=== PATIENT | female | born 1960 | race African-American/Black ===

== ENCOUNTER → 2017-07-07 | Outpatient (CLI) | payer OTHER | END | disposition home or self-care (01) | LOC: NM 07:52 | PROVIDERS: ATTEND Internal Medicine Hematology & Oncology | DX: C50.411 Malignant neoplasm of upper-outer quadrant of right female breast (principal) | CPT/HCPCS: 78306; A9503 ==

== ENCOUNTER 2017-11-22 19:46 | Inpatient (IN) | payer OTHER ==
[~2017-11-22] VITALS: Ht 167.6 cm; Wt 102.1 kg
[~2017-11-22 19:46] MED LIST: ALBU90AE INH; BENZ100C86 PO; BUDE6HFA INH; DOCU250C19 PO; GLIM2TAB2 PO; LETR2.5T6 MT; ONDA4TAB50 PO; PALB125C PO
[2017-11-22] MEDS ORDERED: OXYCODONE HCL/ACETAMINOPHEN 5/325MG TABLET PO ONE (20:30)
[2017-11-22 22:20] LABS: BASOPHILS % 0.3 % (0.0-2.0); EOSINOPHILS % 0.2 % (0.0-5.0); HEMATOCRIT. 28.6 % (36.0-48.0); HEMOGLOBIN. 9.8 g/dL (12.0-16.0); LYMPHOCYTES % 7.1 % (20.0-50.0); MEAN CORPUSCULAR HEMOGLOBIN 31.7 pg (28.0-32.0); MEAN PLATELET VOLUME 7.6 fl (7.4-10.4); MONOCYTES % 11.1 % (2.0-8.0); NEUTROPHILS % 81.3 % (40.0-76.0); PLATELET 367 x1000/uL (130-400); RED BLOOD CELL COUNT 3.07 mill/uL (4.2-5.4); RED CELL DISTRIBUTION WIDTH 17.9 % (11.6-14.6)
[2017-11-22 22:22] LABS: INR 1.1; PROTHROMBIN TIME 11.2 sec (9.1-11.1)
[2017-11-22 22:26] LABS: CHLORIDE 101 mEq/L (98-107)
[2017-11-22] MEDS ORDERED: SODIUM CHLORIDE 0.9% 1,000 ML IV ONE (22:37)
[2017-11-22 23:07] LABS: BG BASE EXCESS 1.3 mmol/L (-2.0-2.0); BG CARBOXYHEMOGLOBIN 0.2 % (0.5-1.5); BG DEOXYHEMOGLOBIN 4.5 % (0.0-5.0); BG FRACTION INSPIRED OXYGEN 28; BG HCO3 ACT 25.6 mmol/L (22.0-26.0); BG METHEMOGLOBIN 0.3 % (0.0-1.5); BG OXYGEN SATURATION 95.5 % (92.0-98.5); BG PCO2 39.6 mmHg (35.0-45.0); BG PH 7.429 (7.350-7.450); BG PO2 79.1 mmHg (75.0-100.0); BG SAMPLE SITE RIGHT RADIAL; BG TOTAL HEMOGLOBIN 10.2 g/dL (12.0-18.0); BG VENT MODE NASAL CANNULA
[2017-11-23] MEDS ORDERED: OXYCODONE HCL/ACETAMINOPHEN 5/325MG TABLET PO ONE (00:45)
[2017-11-23] MEDS ORDERED: IOHEXOL-350 100 ML BOTTLE ONE (01:23)
[2017-11-23] MEDS ORDERED: LEVOFLOXACIN 750MG PREMIX 150 ML IV ONE (01:45)
[2017-11-23] MEDS: MORPHINE SULFATE 4 MG/ML CPJ (NOT FOR IM USE) IV PRN ×2 (03:34→09:37)
[2017-11-23 04:00] VITALS: BP 131/77
[2017-11-23] MEDS ORDERED: DEXTROSE 50% WATER 50ML SYRINGE IV PRN (06:00)
[2017-11-23] MEDS: BLOOD SUGAR DIAGNOSTIC STRIP TEST SCH ×4 (06:34→21:37)
[2017-11-23] MEDS: INSULIN LISPRO 100 UNITS/ML SUBCUT SCH ×4 (06:34→21:00)
[2017-11-23] MEDS: SODIUM CHLORIDE 0.45% 1,000 ML IV SCH ×2 (06:34→21:11)
[2017-11-23 08:05] VITALS: BP 131/82
[2017-11-23] MEDS: METHYLPREDNISOLONE SOD SUCC 40 MG/ML VIAL IV SCH ×2 (09:37→21:11)
[2017-11-23] MEDS: ENOXAPARIN 30MG/0.3ML SYR SUBCUT SCH ×2 (09:38→21:11)
[2017-11-23] MEDS: LEVOFLOXACIN 500MG TABLET PO SCH (11:23)
[2017-11-23 12:00] VITALS: BP 132/75
[2017-11-23] MEDS: IPRATROPIUM/ALBUTEROL 0.5-3(2.5)MG/3ML NEB HHN SCH ×3 (12:00→20:18)
[2017-11-23 16:00] VITALS: BP 138/80
[2017-11-23] MEDS ORDERED: ZOLPIDEM TARTRATE 5MG TABLET PO PRN (17:45)
[2017-11-23] MEDS: HYDROCODONE/ACETAMINOPHEN 5/325MG TABLET PO PRN (18:07)
[2017-11-23 20:00] VITALS: BP 137/84
[2017-11-23] MEDS: METOPROLOL TARTRATE 25MG TABLET PO SCH (21:11)
[2017-11-24] VITALS: BP 114/78
[2017-11-24 04:00] VITALS: BP 118/76
[2017-11-24] MEDS: IPRATROPIUM/ALBUTEROL 0.5-3(2.5)MG/3ML NEB HHN SCH ×6 (04:35→21:53)
[2017-11-24 06:43] LABS: HEMATOCRIT 31.3 % (36.0-48.0); HEMOGLOBIN 10.2 g/dL (12.0-16.0); MEAN CORPUSCULAR HEMOGLOBIN 30.5 pg (28.0-32.0); MEAN CORPUSCULAR VOLUME 92.9 fL (81.0-99.0); PLATELET 373 x1000/uL (130-400); RED BLOOD CELL COUNT 3.36 mill/uL (4.2-5.4); RED CELL DISTRIBUTION WIDTH 17.8 % (11.6-14.6)
[2017-11-24] MEDS: BLOOD SUGAR DIAGNOSTIC STRIP TEST SCH ×4 (07:08→21:36)
[2017-11-24 07:11] LABS: CHLORIDE 104 mEq/L (98-107)
[2017-11-24] MEDS: METOPROLOL TARTRATE 25MG TABLET PO SCH ×2 (09:21→21:29)
[2017-11-24] MEDS: METHYLPREDNISOLONE SOD SUCC 40 MG/ML VIAL IV SCH (09:22)
[2017-11-24] MEDS: ENOXAPARIN 30MG/0.3ML SYR SUBCUT SCH ×2 (09:22→21:29)
[2017-11-24] MEDS: INSULIN LISPRO 100 UNITS/ML SUBCUT SCH ×4 (09:23→21:46)
[2017-11-24] MEDS: SODIUM CHLORIDE 0.45% 1,000 ML IV SCH (09:40)
[2017-11-24] MEDS: LEVOFLOXACIN 500MG TABLET PO SCH (10:41)
[2017-11-24] MEDS ORDERED: FUROSEMIDE 40MG/4ML VIAL IVP NR (13:30)
[2017-11-24] MEDS ORDERED: FUROSEMIDE 40MG TABLET PO NR (18:45)
[2017-11-24 20:00] VITALS: BP 128/78
[2017-11-24] MEDS: HYDROCODONE/ACETAMINOPHEN 5/325MG TABLET PO PRN (21:28)
[2017-11-25] VITALS: BP 106/59
[2017-11-25] MEDS: GUAIFENESIN/CODEINE 200-20MG/10ML UDC PO PRN ×2 (00:46→06:42)
[2017-11-25] MEDS: METHYLPREDNISOLONE SOD SUCC 40 MG/ML VIAL IV SCH ×2 (00:46→09:40)
[2017-11-25] MEDS: SODIUM CHLORIDE 0.45% 1,000 ML IV SCH (00:47)
[2017-11-25] MEDS: IPRATROPIUM/ALBUTEROL 0.5-3(2.5)MG/3ML NEB HHN SCH ×4 (01:09→11:56)
[2017-11-25 04:00] VITALS: BP 113/65
[2017-11-25] MEDS: BLOOD SUGAR DIAGNOSTIC STRIP TEST SCH (05:56)
[2017-11-25] MEDS: HYDROCODONE/ACETAMINOPHEN 5/325MG TABLET PO PRN (06:42)
[2017-11-25 07:09] LABS: HEMATOCRIT 26.4 % (36.0-48.0); MEAN CORPUSCULAR HEMOGLOBIN 31.9 pg (28.0-32.0); MEAN CORPUSCULAR VOLUME 93.3 fL (81.0-99.0); PLATELET 366 x1000/uL (130-400); RED BLOOD CELL COUNT 2.83 mill/uL (4.2-5.4)
[2017-11-25 08:00] VITALS: BP 101/63
[2017-11-25 08:33] LABS: CHLORIDE 104 mEq/L (98-107)
[2017-11-25] MEDS: METOPROLOL TARTRATE 25MG TABLET PO SCH (09:00)
[2017-11-25] MEDS: INSULIN LISPRO 100 UNITS/ML SUBCUT SCH (09:39)
[2017-11-25] MEDS: ENOXAPARIN 30MG/0.3ML SYR SUBCUT SCH (09:40)
[2017-11-25 10:58] VITALS: BP 101/63
[2017-11-25] MEDS: LEVOFLOXACIN 500MG TABLET PO SCH (11:07)
== END 2017-11-25 13:10 | disposition home or self-care (01) | DRG 291 ==
LOC: ER 19:46 → 7WST 11-23 01:43 → ENRESERV 11-23 03:06 → EDBEDREQ 11-23 03:35
PROVIDERS: ADMIT Internal Medicine; ATTEND Internal Medicine
DX: I11.0 Hypertensive heart disease with heart failure (principal); J18.9 Pneumonia, unspecified organism; C78.00 Secondary malignant neoplasm of unspecified lung; M84.511A Pathological fracture in neoplastic disease, right shoulder, initial encounter for fracture; M84.58XA Pathological fracture in neoplastic disease, other specified site, initial encounter for fracture; C79.51 Secondary malignant neoplasm of bone; I50.43 Acute on chronic combined systolic (congestive) and diastolic (congestive) heart failure; R06.03 Acute respiratory distress; E66.9 Obesity, unspecified; C50.919 Malignant neoplasm of unspecified site of unspecified female breast; D64.9 Anemia, unspecified; E11.9 Type 2 diabetes mellitus without complications; W06.XXXA Fall from bed, initial encounter; Z90.710 Acquired absence of both cervix and uterus; Z92.3 Personal history of irradiation; Z68.36 Body mass index [BMI] 36.0-36.9, adult; Z99.81 Dependence on supplemental oxygen; Y93.89 Activity, other specified; Y92.488 Other paved roadways as the place of occurrence of the external cause; Y99.8 Other external cause status
CPT/HCPCS: 36415; 36600; 71045; 71101; 71275; 80048; 82375; 82805; 82962; 83880; 85027; 93306; 93970; 94640; 96361; 96365; 99285; C1893; J1650; J1815; J1940; J1956; J2270; J2920; J7030; J7620; Q9967

== ENCOUNTER 2018-02-11 13:10 | Inpatient (IN) | payer OTHER ==
[~2018-02-11] VITALS: Ht 170.2 cm; Wt 97.5 kg
[~2018-02-11 13:10] MED LIST changes: -LETR2.5T6 MT; -PALB125C PO
[2018-02-11] MEDS ORDERED: SODIUM CHLORIDE 0.9% 1,000 ML IV ONE (13:46)
[2018-02-11 14:40] LABS: BASOPHILS % 0.5 % (0.0-2.0); EOSINOPHILS % 0.7 % (0.0-5.0); HEMATOCRIT. 31.6 % (36.0-48.0); HEMOGLOBIN. 10.5 g/dL (12.0-16.0); LYMPHOCYTES % 15.1 % (20.0-50.0); MEAN CORPUSCULAR HEMOGLOBIN 27.6 pg (28.0-32.0); MEAN CORPUSCULAR VOLUME 83.4 fL (81.0-99.0); MEAN PLATELET VOLUME 7.7 fl (7.4-10.4); MONOCYTES % 2.5 % (2.0-8.0); NEUTROPHILS % 81.2 % (40.0-76.0); PLATELET 298 x1000/uL (130-400); RED BLOOD CELL COUNT 3.79 mill/uL (4.2-5.4); RED CELL DISTRIBUTION WIDTH 20.2 % (11.6-14.6)
[2018-02-11 14:45] LABS: CHLORIDE 105 mEq/L (98-107)
[2018-02-11 14:49] LABS: D-DIMER 1.96 mg/L FEU (<0.50); PROTHROMBIN TIME 10.1 sec (9.1-11.1)
[2018-02-11] MEDS ORDERED: PIPERACILLIN/TAZ 3.375G PREMIX 50 ML IV ONE (15:15)
[2018-02-11 16:38] LABS: CLARITY URINE CLEAR (CLEAR); COLOR URINE YELLOW (YELLOW); KETONES URINE NEGATIVE (NEGATIVE); LEUKOCYTE ESTERASE URINE NEGATIVE (NEGATIVE); NITRITE URINE NEGATIVE (NEGATIVE); OCCULT BLOOD URINE NEGATIVE (NEGATIVE); PROTEIN URINE NEGATIVE (NEGATIVE); SPECIFIC GRAVITY URINE 1.016 (1.005-1.030)
[2018-02-11] MEDS ORDERED: IPRATROPIUM/ALBUTEROL 0.5-3(2.5)MG/3ML NEB HHN PRN (23:15)
[2018-02-11] MEDS ORDERED: ACETAMINOPHEN 325MG TABLET PO PRN (23:15)
[2018-02-11] MEDS ORDERED: SODIUM CHLORIDE 0.45% 1,000 ML IV SCH (23:18)
[2018-02-11 23:30] VITALS: BP 117/64
[2018-02-12] MEDS: GUAIFENESIN-DM 200MG-20MG/10ML UDC PO PRN ×3 (00:03→21:00)
[2018-02-12] MEDS ORDERED: ONDA8TAB13 MT (00:25)
[2018-02-12] MEDS ORDERED: AMLO5TAB88 MT (00:25)
[2018-02-12] MEDS ORDERED: FURO20TA4 MT (00:25)
[2018-02-12] MEDS ORDERED: CODE473S5 MT (00:25)
[2018-02-12] MEDS ORDERED: HYDR-4001 PO (00:25)
[2018-02-12] MEDS ORDERED: FURO40TA5 MT (00:25)
[2018-02-12] MEDS ORDERED: POTA10CA42 MT (00:25)
[2018-02-12] MEDS ORDERED: BENZ100C86 PO (00:27)
[2018-02-12] MEDS ORDERED: DOCU250C19 PO (00:32)
[2018-02-12] MEDS ORDERED: PRED5TAB PO (00:32)
[2018-02-12] MEDS ORDERED: NA S5DRO OP (00:32)
[2018-02-12] MEDS ORDERED: ACET-2708 MT (00:37)
[2018-02-12] MEDS ORDERED: ALBU90AE INH (00:37)
[2018-02-12] MEDS ORDERED: MULT-1180 PO (00:37)
[2018-02-12] MEDS: PIPERACILLIN/TAZ 3.375G PREMIX 50 ML IV SCH ×3 (01:36→18:31)
[2018-02-12 04:00] VITALS: BP 137/87
[2018-02-12] MEDS: PANTOPRAZOLE 40MG DR TABLET PO SCH (06:49)
[2018-02-12 08:00] VITALS: BP 130/71
[2018-02-12 12:00] VITALS: BP 126/80
[2018-02-12] MEDS ORDERED: DEXTROSE 50% WATER 50ML SYRINGE IV PRN (15:15)
[2018-02-12 16:00] VITALS: BP 123/77
[2018-02-12] MEDS: DILTIAZEM HCL 30MG TABLET PO SCH (16:53)
[2018-02-12] MEDS: BLOOD SUGAR DIAGNOSTIC STRIP TEST SCH ×2 (17:10→21:56)
[2018-02-12] MEDS: INSULIN LISPRO 100 UNITS/ML SUBCUT SCH ×2 (17:40→22:06)
[2018-02-12] MEDS ORDERED: IOHEXOL-350 100 ML BOTTLE ONE (18:17)
[2018-02-12] MEDS: HYDROMORPHONE HCL/PF 2MG/ML CPJ IV PRN (18:30)
[2018-02-12] MEDS: METHYLPREDNISOLONE SOD SUCC 40 MG/ML VIAL IV SCH ×2 (18:40→23:27)
[2018-02-12 20:00] VITALS: BP 140/66
[2018-02-12] MEDS: IPRATROPIUM/ALBUTEROL 0.5-3(2.5)MG/3ML NEB HHN SCH (21:26)
[2018-02-12] MEDS: ENOXAPARIN 30MG/0.3ML SYR SUBCUT SCH (22:02)
[2018-02-13] VITALS: BP 142/67
[2018-02-13] MEDS: IPRATROPIUM/ALBUTEROL 0.5-3(2.5)MG/3ML NEB HHN SCH ×4 (00:44→20:15)
[2018-02-13] MEDS: PIPERACILLIN/TAZ 3.375G PREMIX 50 ML IV SCH ×3 (01:25→17:23)
[2018-02-13 04:00] VITALS: BP 118/96
[2018-02-13] MEDS: DILTIAZEM HCL 30MG TABLET PO SCH ×2 (05:18→15:47)
[2018-02-13] MEDS: BLOOD SUGAR DIAGNOSTIC STRIP TEST SCH ×4 (06:23→21:05)
[2018-02-13] MEDS: METHYLPREDNISOLONE SOD SUCC 40 MG/ML VIAL IV SCH ×3 (06:37→21:03)
[2018-02-13] MEDS: PANTOPRAZOLE 40MG DR TABLET PO SCH (06:37)
[2018-02-13] MEDS: INSULIN LISPRO 100 UNITS/ML SUBCUT SCH ×4 (06:41→21:23)
[2018-02-13 07:09] LABS: HEMATOCRIT 30.7 % (36.0-48.0); HEMOGLOBIN 10.1 g/dL (12.0-16.0); MEAN CORPUSCULAR HEMOGLOBIN 27.7 pg (28.0-32.0); MEAN CORPUSCULAR VOLUME 84.1 fL (81.0-99.0); PLATELET 290 x1000/uL (130-400); RED BLOOD CELL COUNT 3.65 mill/uL (4.2-5.4)
[2018-02-13 07:19] LABS: CHLORIDE 104 mEq/L (98-107)
[2018-02-13 08:00] VITALS: BP 112/64
[2018-02-13] MEDS: ENOXAPARIN 30MG/0.3ML SYR SUBCUT SCH ×2 (10:06→21:04)
[2018-02-13] MEDS: GUAIFENESIN-DM 200MG-20MG/10ML UDC PO PRN ×2 (10:06→21:04)
[2018-02-13 12:00] VITALS: BP 144/84
[2018-02-13] MEDS: HYDROMORPHONE HCL/PF 2MG/ML CPJ IV PRN ×2 (15:52→21:05)
[2018-02-13 20:00] VITALS: BP 122/80
[2018-02-14] VITALS: BP 116/65
[2018-02-14] MEDS: IPRATROPIUM/ALBUTEROL 0.5-3(2.5)MG/3ML NEB HHN SCH ×4 (00:34→12:09)
[2018-02-14] MEDS: PIPERACILLIN/TAZ 3.375G PREMIX 50 ML IV SCH ×2 (02:35→08:31)
[2018-02-14 04:00] VITALS: BP 110/69
[2018-02-14] MEDS: DILTIAZEM HCL 30MG TABLET PO SCH (04:26)
[2018-02-14] MEDS: PANTOPRAZOLE 40MG DR TABLET PO SCH (06:32)
[2018-02-14] MEDS: METHYLPREDNISOLONE SOD SUCC 40 MG/ML VIAL IV SCH (06:32)
[2018-02-14] MEDS: BLOOD SUGAR DIAGNOSTIC STRIP TEST SCH ×2 (06:33→12:03)
[2018-02-14] MEDS: INSULIN LISPRO 100 UNITS/ML SUBCUT SCH ×2 (06:37→12:23)
[2018-02-14] MEDS: GUAIFENESIN-DM 200MG-20MG/10ML UDC PO PRN (06:41)
[2018-02-14 08:00] VITALS: BP 140/87
[2018-02-14] MEDS: ENOXAPARIN 30MG/0.3ML SYR SUBCUT SCH (08:31)
[2018-02-14 11:48] VITALS: BP 138/91
== END 2018-02-14 14:26 | disposition home or self-care (01) | DRG 194 ==
LOC: ER 13:10 → 8WST 15:21 → ENRESERV 19:59
PROVIDERS: ADMIT Internal Medicine; ATTEND Internal Medicine
DX: J18.8 Other pneumonia, unspecified organism (principal); C78.00 Secondary malignant neoplasm of unspecified lung; I31.3 Pericardial effusion (noninflammatory); C79.51 Secondary malignant neoplasm of bone; M84.511A Pathological fracture in neoplastic disease, right shoulder, initial encounter for fracture; M84.58XA Pathological fracture in neoplastic disease, other specified site, initial encounter for fracture; R65.10 Systemic inflammatory response syndrome (SIRS) of non-infectious origin without acute organ dysfunction; R59.0 Localized enlarged lymph nodes; J06.9 Acute upper respiratory infection, unspecified; E11.65 Type 2 diabetes mellitus with hyperglycemia; D64.9 Anemia, unspecified; D72.819 Decreased white blood cell count, unspecified; E88.09 Other disorders of plasma-protein metabolism, not elsewhere classified; E66.9 Obesity, unspecified; I10 Essential (primary) hypertension; R79.1 Abnormal coagulation profile; Z87.01 Personal history of pneumonia (recurrent); Z85.3 Personal history of malignant neoplasm of breast; Z90.11 Acquired absence of right breast and nipple; Z90.710 Acquired absence of both cervix and uterus; Z68.33 Body mass index [BMI] 33.0-33.9, adult; Z92.21 Personal history of antineoplastic chemotherapy; Z92.3 Personal history of irradiation
CPT/HCPCS: 36415; 71045; 71275; 80048; 82962; 83605; 83880; 84484; 85027; 85379; 87804; 93005; 94640; 96365; 99291; C1893; J1170; J1650; J1815; J2543; J2920; J7030; J7620; Q9967

== ENCOUNTER 2018-03-21 11:34 | Inpatient (IN) | payer OTHER ==
[~2018-03-21] VITALS: Ht 170.2 cm; Wt 99.8 kg
[~2018-03-21 11:34] MED LIST changes: +ACET-2708 MT; +AMLO5TAB88 MT; +CODE473S5 MT; +FURO20TA4 MT; +FURO40TA5 MT; +HYDR-4001 PO; +MULT-1180 PO; +NA S5DRO OP; +ONDA8TAB13 MT; +POTA10CA42 MT; +PRED5TAB PO
[2018-03-21] MEDS ORDERED: VANCOMYCIN 1 G PREMIX 200 ML IV ONE (13:00)
[2018-03-21] MEDS ORDERED: PIPERACILLIN/TAZ 3.375G PREMIX 50 ML IV ONE (13:00)
[2018-03-21] MEDS ORDERED: SODIUM CHLORIDE 0.9% 1000ML BAG (SEPSIS BOLUS) IV ONE (13:15)
[2018-03-21] MEDS ORDERED: DIPHENHYDRAMINE 50MG/ML VIAL IV PRN (13:45)
[2018-03-21] MEDS ORDERED: LORAZEPAM 0.5MG TABLET PO PRN (13:45)
[2018-03-21] MEDS ORDERED: ACETAMINOPHEN 325MG TABLET PO PRN (13:45)
[2018-03-21] MEDS ORDERED: CLONIDINE 0.1MG TABLET PO PRN (13:45)
[2018-03-21] MEDS ORDERED: ACETAMINOPHEN 650MG SUPP PR PRN (13:45)
[2018-03-21] MEDS ORDERED: ONDANSETRON HCL 4MG/2ML INJ IV PRN (13:45)
[2018-03-21] MEDS ORDERED: IPRATROPIUM/ALBUTEROL 0.5-3(2.5)MG/3ML NEB INH PRN (13:45)
[2018-03-21] MEDS ORDERED: NA PHOS,M-B/NA PHOS,DI-BA ENEMA 118ML PR PRN (13:45)
[2018-03-21] MEDS ORDERED: GUAIFENESIN 200MG/10ML SUGAR FREE UDC PO PRN (13:45)
[2018-03-21] MEDS ORDERED: MAGNESIUM/ALUMINUM HYDROXIDE/SIMETHICONE 30ML UDC PO PRN (13:45)
[2018-03-21 13:53] LABS: HEMOGLOBIN. 10.8 g/dL (12.0-16.0); MEAN CORPUSCULAR VOLUME 82.5 fL (81.0-99.0); MEAN PLATELET VOLUME 7.1 fl (7.4-10.4); PLATELET 610 x1000/uL (130-400); RED CELL DISTRIBUTION WIDTH 20.8 % (11.6-14.6)
[2018-03-21 13:57] LABS: CHLORIDE 106 mEq/L (98-107)
[2018-03-21 14:01] LABS: PARTIAL THROMBOPLASTIN TIME 27.6 sec (23.4-31.0)
[2018-03-21 14:16] LABS: PLATELET ESTIMATE INCREASED
[2018-03-21] MEDS: BLOOD SUGAR DIAGNOSTIC STRIP TEST SCH ×2 (17:24→20:12)
[2018-03-21] MEDS ORDERED: DEXTROSE 50% WATER 50ML SYRINGE IV PRN (17:25)
[2018-03-21] MEDS ORDERED: HYDROCODONE/APAP 7.5/325MG 1 TAB TABLET PO PRN (17:30)
[2018-03-21] MEDS ORDERED: DOCUSATE SODIUM 100MG CAPSULE PO PRN (17:30)
[2018-03-21] MEDS: INSULIN LISPRO 100 UNITS/ML SUBCUT SCH ×2 (17:50→20:13)
[2018-03-21] MEDS: SODIUM CHLORIDE 0.45% 1,000 ML IV SCH (17:54)
[2018-03-21 18:42] VITALS: BP 168/92
[2018-03-21] MEDS: PIPERACILLIN/TAZ 3.375G PREMIX 50 ML IV SCH (20:03)
[2018-03-21 20:36] VITALS: BP 133/88
[2018-03-21] MEDS: VANCOMYCIN 1 G PREMIX 200 ML IV SCH (20:51)
[2018-03-21] MEDS: DILTIAZEM HCL 30MG TABLET PO SCH (20:51)
[2018-03-21] MEDS ORDERED: MULT-1146 MT (21:26)
[2018-03-21] MEDS: IPRATROPIUM/ALBUTEROL 0.5-3(2.5)MG/3ML NEB INH SCH (21:30)
[2018-03-22] VITALS: BP 130/76
[2018-03-22] MEDS: IPRATROPIUM/ALBUTEROL 0.5-3(2.5)MG/3ML NEB INH SCH ×3 (01:10→13:50)
[2018-03-22] MEDS: PIPERACILLIN/TAZ 3.375G PREMIX 50 ML IV SCH ×2 (01:22→08:00)
[2018-03-22 04:00] VITALS: BP 123/72
[2018-03-22] MEDS: BLOOD SUGAR DIAGNOSTIC STRIP TEST SCH ×2 (06:03→12:20)
[2018-03-22] MEDS: INSULIN LISPRO 100 UNITS/ML SUBCUT SCH ×2 (06:03→12:50)
[2018-03-22] MEDS: DILTIAZEM HCL 30MG TABLET PO SCH (06:59)
[2018-03-22] MEDS: VANCOMYCIN 1 G PREMIX 200 ML IV SCH (06:59)
[2018-03-22 07:27] LABS: HEMATOCRIT. 29.8 % (36.0-48.0); HEMOGLOBIN. 9.8 g/dL (12.0-16.0); MEAN CORPUSCULAR HEMOGLOBIN 27.1 pg (28.0-32.0); MEAN CORPUSCULAR VOLUME 82.6 fL (81.0-99.0); MEAN PLATELET VOLUME 7.2 fl (7.4-10.4); PLATELET 531 x1000/uL (130-400); RED BLOOD CELL COUNT 3.61 mill/uL (4.2-5.4); RED CELL DISTRIBUTION WIDTH 20.6 % (11.6-14.6)
[2018-03-22 07:53] LABS: CHLORIDE 106 mEq/L (98-107)
[2018-03-22 08:02] VITALS: BP 133/80
[2018-03-22 08:09] LABS: LDL CHOLESTEROL 103 mg/dL (5-100)
[2018-03-22 08:11] LABS: HDL CHOLESTEROL 46 mg/dL (40-59)
[2018-03-22 08:21] LABS: T4 FREE 1.19 ng/dL (0.76-1.46)
[2018-03-22] MEDS: SODIUM CHLORIDE 0.45% 1,000 ML IV SCH (10:10)
[2018-03-22 12:00] VITALS: BP 118/75
[2018-03-22 14:10] VITALS: BP 118/75
[2018-03-22 16:00] VITALS: BP 115/77
[2018-03-22] MEDS ORDERED: VANCOMYCIN 1250MG in DEXTROSE 5% WATER 250ML IV SCH (19:00)
[2018-03-22] MEDS ORDERED: PIPERACILLIN/TAZ 3.375G PREMIX 50 ML IV SCH (20:00)
[2018-03-22 20:28] LABS: PLATELET ESTIMATE INCREASED
== END 2018-03-22 18:10 | disposition home or self-care (01) | DRG 315 ==
LOC: ER 11:34 → 6WST 13:02 → EDBEDREQ 13:07 → ENRESERV 13:26 → EDRESERV 13:26 → CANRESERV 13:26 → ENRESERV 15:42 → 6WST 17:20
PROVIDERS: ADMIT Internal Medicine; ATTEND Internal Medicine
DX: T82.7XXA Infection and inflammatory reaction due to other cardiac and vascular devices, implants and grafts, initial encounter (principal); C34.90 Malignant neoplasm of unspecified part of unspecified bronchus or lung; C77.9 Secondary and unspecified malignant neoplasm of lymph node, unspecified; C79.51 Secondary malignant neoplasm of bone; L02.213 Cutaneous abscess of chest wall; E44.0 Moderate protein-calorie malnutrition; Y83.8 Other surgical procedures as the cause of abnormal reaction of the patient, or of later complication, without mention of misadventure at the time of the procedure; E11.9 Type 2 diabetes mellitus without complications; E66.9 Obesity, unspecified; I10 Essential (primary) hypertension; C50.919 Malignant neoplasm of unspecified site of unspecified female breast; Z90.710 Acquired absence of both cervix and uterus; Z79.899 Other long term (current) drug therapy; Z68.34 Body mass index [BMI] 34.0-34.9, adult; Y92.89 Other specified places as the place of occurrence of the external cause
CPT/HCPCS: 36415; 71045; 76604; 80061; 82962; 83605; 84145; 84439; 84443; 93005; 93970; 94640; 96365; 99291; J2543; J3370; J7030; J7060; J7620

== ENCOUNTER 2018-06-06 01:40 | Inpatient (IN) | payer OTHER ==
[~2018-06-06] VITALS: Ht 170.2 cm; Wt 92.7 kg
[~2018-06-06 01:40] MED LIST changes: +MULT-1146 MT; -MULT-1180 PO
[2018-06-06] MEDS ORDERED: SODIUM CHLORIDE 0.9% 1,000 ML IV ONE (02:41)
[2018-06-06 03:29] LABS: MEAN CORPUSCULAR HEMOGLOBIN 25.8 pg (28.0-32.0); MEAN CORPUSCULAR VOLUME 79.8 fL (81.0-99.0); MEAN PLATELET VOLUME 7.4 fl (7.4-10.4); PLATELET 420 x1000/uL (130-400); RED BLOOD CELL COUNT 3.88 mill/uL (4.2-5.4); RED CELL DISTRIBUTION WIDTH 22.1 % (11.6-14.6)
[2018-06-06 03:36] LABS: CHLORIDE 101 mEq/L (98-107)
[2018-06-06 04:31] LABS: PLATELET ESTIMATE SLIGHTLY INCREASED
[2018-06-06] MEDS ORDERED: GUAIFENESIN/CODEINE 200-20MG/10ML UDC PO ONE (05:45)
[2018-06-06] MEDS ORDERED: IOHEXOL-350 100 ML BOTTLE ONE (06:34)
[2018-06-06 12:20] VITALS: BP 120/75
[2018-06-06] MEDS ORDERED: MAGNESIUM/ALUMINUM HYDROXIDE/SIMETHICONE 30ML UDC PO PRN (13:45)
[2018-06-06] MEDS ORDERED: DIPHENHYDRAMINE 50MG/ML VIAL IV PRN (13:45)
[2018-06-06] MEDS ORDERED: HYDROCODONE/ACETAMINOPHEN 5/325MG TABLET PO PRN (13:45)
[2018-06-06] MEDS ORDERED: CLONIDINE 0.1MG TABLET PO PRN (13:45)
[2018-06-06] MEDS ORDERED: ONDANSETRON HCL 4MG/2ML INJ IV PRN (13:45)
[2018-06-06] MEDS ORDERED: ACETAMINOPHEN 325MG TABLET PO PRN (13:45)
[2018-06-06] MEDS ORDERED: LORAZEPAM 0.5MG TABLET PO PRN (13:45)
[2018-06-06] MEDS ORDERED: ACETAMINOPHEN 650MG SUPP PR PRN (13:45)
[2018-06-06] MEDS ORDERED: GUAIFENESIN 200MG/10ML SUGAR FREE UDC PO PRN (13:45)
[2018-06-06] MEDS ORDERED: NA PHOS,M-B/NA PHOS,DI-BA ENEMA 118ML PR PRN (13:45)
[2018-06-06] MEDS ORDERED: IPRATROPIUM/ALBUTEROL 0.5-3(2.5)MG/3ML NEB INH PRN (13:45)
[2018-06-06] MEDS ORDERED: DOCUSATE SODIUM 100MG CAPSULE PO PRN (13:45)
[2018-06-06] MEDS ORDERED: DEXTROSE 50% WATER 50ML SYRINGE IV PRN (14:00)
[2018-06-06 16:00] VITALS: BP 125/72
[2018-06-06] MEDS: METHYLPREDNISOLONE SOD SUCC 40 MG/ML VIAL IV SCH ×2 (16:09→22:01)
[2018-06-06] MEDS: DILTIAZEM HCL 30MG TABLET PO SCH ×2 (16:10→22:01)
[2018-06-06] MEDS: LEVOFLOXACIN 500MG PREMIX 100 ML IV SCH (16:10)
[2018-06-06] MEDS: BLOOD SUGAR DIAGNOSTIC STRIP TEST SCH ×2 (17:40→21:59)
[2018-06-06] MEDS: INSULIN LISPRO 100 UNITS/ML SUBCUT SCH ×2 (18:10→22:01)
[2018-06-06 19:30] VITALS: BP 124/73
[2018-06-06] MEDS: IPRATROPIUM/ALBUTEROL 0.5-3(2.5)MG/3ML NEB INH SCH (20:13)
[2018-06-06] MEDS: ENOXAPARIN 30MG/0.3ML SYR SUBCUT SCH (22:01)
[2018-06-07] VITALS (14 sets, daily range): BP systolic 104–154; BP diastolic 62–89
[2018-06-07] MEDS: IPRATROPIUM/ALBUTEROL 0.5-3(2.5)MG/3ML NEB INH SCH ×4 (04:27→21:32)
[2018-06-07 04:53] LABS: BG BASE EXCESS -3.7 mmol/L (-2.0-2.0); BG CARBOXYHEMOGLOBIN 0.3 % (0.5-1.5); BG DEOXYHEMOGLOBIN 7.4 % (0.0-5.0); BG FRACTION INSPIRED OXYGEN 21; BG HCO3 ACT 20.6 mmol/L (22.0-26.0); BG METHEMOGLOBIN 0.3 % (0.0-1.5); BG OXYGEN SATURATION 92.6 % (92.0-98.5); BG PCO2 34.6 mmHg (35.0-45.0); BG PH 7.393 (7.350-7.450); BG PO2 68.9 mmHg (75.0-100.0); BG SAMPLE SITE RIGHT RADIAL; BG TOTAL HEMOGLOBIN 11.1 g/dL (12.0-18.0); BG VENT MODE ROOM AIR
[2018-06-07 06:31] LABS: HEMATOCRIT. 27.6 % (36.0-48.0); MEAN CORPUSCULAR HEMOGLOBIN 25.6 pg (28.0-32.0); MEAN CORPUSCULAR VOLUME 78.5 fL (81.0-99.0); MEAN PLATELET VOLUME 7.3 fl (7.4-10.4); PLATELET 420 x1000/uL (130-400); RED BLOOD CELL COUNT 3.52 mill/uL (4.2-5.4); RED CELL DISTRIBUTION WIDTH 21.4 % (11.6-14.6)
[2018-06-07] MEDS: BLOOD SUGAR DIAGNOSTIC STRIP TEST SCH ×4 (06:45→21:16)
[2018-06-07] MEDS: DILTIAZEM HCL 30MG TABLET PO SCH ×2 (06:51→14:30)
[2018-06-07 06:57] LABS: CHLORIDE 106 mEq/L (98-107)
[2018-06-07] MEDS: INSULIN LISPRO 100 UNITS/ML SUBCUT SCH ×4 (07:20→21:45)
[2018-06-07] MEDS: METHYLPREDNISOLONE SOD SUCC 40 MG/ML VIAL IV SCH ×2 (08:30→21:49)
[2018-06-07] MEDS: ENOXAPARIN 30MG/0.3ML SYR SUBCUT SCH ×2 (08:31→21:47)
[2018-06-07 09:57] LABS: PLATELET ESTIMATE INCREASED
[2018-06-07] MEDS ORDERED: GADOBENATE DIMEGLUMINE 529 MG/ML 10ML IV ONE (17:00)
[2018-06-07] MEDS: LEVOFLOXACIN 500MG PREMIX 100 ML IV SCH (17:21)
[2018-06-08] VITALS (10 sets, daily range): BP systolic 103–149; BP diastolic 67–87
[2018-06-08] MEDS: IPRATROPIUM/ALBUTEROL 0.5-3(2.5)MG/3ML NEB INH SCH ×3 (01:55→14:30)
[2018-06-08] MEDS: BLOOD SUGAR DIAGNOSTIC STRIP TEST SCH ×2 (06:45→11:50)
[2018-06-08 07:14] LABS: HEMATOCRIT 25.2 % (36.0-48.0); HEMOGLOBIN 8.2 g/dL (12.0-16.0); MEAN CORPUSCULAR HEMOGLOBIN 25.9 pg (28.0-32.0); MEAN CORPUSCULAR VOLUME 79.6 fL (81.0-99.0); PLATELET 379 x1000/uL (130-400); RED BLOOD CELL COUNT 3.17 mill/uL (4.2-5.4); RED CELL DISTRIBUTION WIDTH 21.9 % (11.6-14.6)
[2018-06-08] MEDS: INSULIN LISPRO 100 UNITS/ML SUBCUT SCH ×2 (07:20→13:21)
[2018-06-08 07:46] LABS: CHLORIDE 106 mEq/L (98-107)
[2018-06-08] MEDS: METHYLPREDNISOLONE SOD SUCC 40 MG/ML VIAL IV SCH (08:36)
[2018-06-08] MEDS: ENOXAPARIN 30MG/0.3ML SYR SUBCUT SCH (08:37)
[2018-06-08] MEDS: LEVOFLOXACIN 500MG PREMIX 100 ML IV SCH (15:00)
== END 2018-06-08 17:00 | disposition home or self-care (01) | DRG 73 ==
LOC: ER 01:40 → 7WST 05:23 → EDBEDREQTM 05:38 → EDBEDREQ 05:38 → ENRESERV 10:46 → 3WST 06-07 05:55
PROVIDERS: ADMIT Internal Medicine; ATTEND Internal Medicine
DX: G90.8 Other disorders of autonomic nervous system (principal); I50.33 Acute on chronic diastolic (congestive) heart failure; C79.31 Secondary malignant neoplasm of brain; C79.51 Secondary malignant neoplasm of bone; I31.3 Pericardial effusion (noninflammatory); C78.00 Secondary malignant neoplasm of unspecified lung; C50.911 Malignant neoplasm of unspecified site of right female breast; E11.9 Type 2 diabetes mellitus without complications; E66.9 Obesity, unspecified; I25.10 Atherosclerotic heart disease of native coronary artery without angina pectoris; R06.03 Acute respiratory distress; R00.0 Tachycardia, unspecified; I11.0 Hypertensive heart disease with heart failure; I27.20 Pulmonary hypertension, unspecified; Z79.899 Other long term (current) drug therapy; Z90.710 Acquired absence of both cervix and uterus; Z68.32 Body mass index [BMI] 32.0-32.9, adult
CPT/HCPCS: 36415; 36600; 70553; 71045; 71275; 80048; 82140; 82375; 82805; 82962; 83036; 83605; 83735; 83880; 84484; 85027; 93005; 93306; 93880; 94640; 96360; 96361; 99291; A9577; J1650; J1815; J1956; J2920; J7030; J7040; J7050; J7620; Q9967